=== PATIENT | male | born 1980 | race Caucasian/White ===

== ENCOUNTER 2017-03-05 13:56 | Inpatient (IN) | payer MEDICAID ==
[~2017-03-05] VITALS: Ht 180.3 cm; Wt 74.0 kg
[2017-03-05] MEDS ORDERED: SODIUM CHLORIDE FLUSH 10ML SYR IVF ONE ×2 (15:30→17:00)
[2017-03-05] MEDS ORDERED: SODIUM CHLORIDE 0.9% 1,000ML IVBOLUS ONE ×2 (15:30→16:30)
[2017-03-05] MEDS ORDERED: LIDOCAINE 1%, 10ML INFIL ONE (15:30)
[2017-03-05 15:57] LABS: BLOOD UREA NITROGEN 11 mg/dL (7-18)
[2017-03-05] MEDS ORDERED: PHARMACOKINETIC CONSULTATION MC ONE ×2 (16:30→21:00)
[2017-03-05] MEDS ORDERED: VANCOMYCIN PER PHARMACY MC ONE (16:30)
[2017-03-05] MEDS ORDERED: SODIUM CHLORIDE 0.9% 1,000 ML IV ONE (16:55)
[2017-03-05] MEDS ORDERED: VANCOMYCIN 1,500 MG in SODIUM CHLORIDE 0.9% 250 ML IV ONE (17:00)
[2017-03-05] MEDS: D5%-0.45% NACL 1,000 ML IV SCH (17:16)
[2017-03-05] MEDS ORDERED: VANCOMYCIN PER PHARMACY MC PRN ×2 (17:30)
[2017-03-05] MEDS ORDERED: AMPICILLIN/SULBACTAM 3 GM in SODIUM CHLORIDE 0.9% 100 ML IV SCH (17:30)
[2017-03-05] MEDS ORDERED: DOCUSATE 100 MG CAPSULE PO PRN (17:30)
[2017-03-05] MEDS ORDERED: HYDROmorphone 1 MG/ML, 1ML ONE ×3 (17:30→18:53)
[2017-03-05] MEDS ORDERED: LORazepam 2 MG/ML, 1ML ONE (17:32)
[2017-03-05] MEDS: HYDROmorphone 1 MG/ML, 1ML IV PRN ×6 (17:36→21:17)
[2017-03-05] MEDS: LORazepam 2 MG/ML, 1ML IVPush PRN ×2 (17:36→22:56)
[2017-03-05] MEDS ORDERED: PROPOFOL 10 MG/ML, 20ML ONE (18:28)
[2017-03-05] MEDS ORDERED: ONDANSETRON 2MG/ML, 2ML ONE (18:28)
[2017-03-05] MEDS ORDERED: SUCCINYLCHOLINE 20 MG/ML, 10ML ONE (18:28)
[2017-03-05] MEDS ORDERED: FENTANYL PF 250 MCG/5ML ONE (18:29)
[2017-03-05] MEDS ORDERED: ACETAMINOPHEN 325 MG TABLET PO PRN (19:00)
[2017-03-05] MEDS ORDERED: MEPERIDINE/PF 25MG/0.5ML IVPush PRN (19:00)
[2017-03-05] MEDS ORDERED: ONDANSETRON 2MG/ML, 2ML IVPush PRN (19:00)
[2017-03-05] MEDS ORDERED: ALBUTEROL SULFATE 2.5 MG/3 ML NPPB PRN (19:00)
[2017-03-05] MEDS ORDERED: LABETALOL 5MG/ML, 20ML IV PRN (19:00)
[2017-03-05] MEDS ORDERED: METOPROLOL 1 MG/ML, 5ML IV PRN (19:00)
[2017-03-05] MEDS ORDERED: hydrALAzine 20 MG/ML, 1ML IV PRN (19:00)
[2017-03-05] MEDS ORDERED: EPHEDRINE 50 MG/ML, 1ML IVPush PRN (19:00)
[2017-03-05] MEDS ORDERED: OXYcodone 5 MG/5 ML ORAL.SOL UDC PO PRN (19:00)
[2017-03-05] MEDS ORDERED: MIDAZOLAM 1 MG/ML, 2ML ONE (19:32)
[2017-03-05] MEDS ORDERED: FENTANYL PF 100 MCG/2ML ONE (19:32)
[2017-03-05] MEDS ORDERED: OXYcodone 5 MG/5 ML ORAL.SOL UDC ONE (19:32)
[2017-03-05] MEDS ORDERED: HYDROmorphone 2 MG/ML, 1ML ONE (19:32)
[2017-03-05] MEDS: MIDAZOLAM 1 MG/ML, 2ML IV PRN ×2 (19:39→20:11)
[2017-03-05] MEDS: FENTANYL PF 100 MCG/2ML IV PRN ×2 (19:41→19:49)
[2017-03-05] MEDS ORDERED: PHARMACOKINETIC MONITORING MC PRN (21:00)
[2017-03-05] MEDS: AMPICILLIN/SULBACTAM 3 GM in SODIUM CHLORIDE 0.9% 100 ML IV SCH (21:42)
[2017-03-05 21:46] VITALS: BP 115/60
[2017-03-06] MEDS: D5%-0.45% NACL 1,000 ML IV SCH ×3 (03:10→22:31)
[2017-03-06] MEDS: AMPICILLIN/SULBACTAM 3 GM in SODIUM CHLORIDE 0.9% 100 ML IV SCH ×4 (03:51→20:57)
[2017-03-06 04:00] VITALS: BP 118/66
[2017-03-06 04:15] VITALS: BP 99/52
[2017-03-06] MEDS: VANCOMYCIN 1,500 MG in SODIUM CHLORIDE 0.9% 250 ML IV SCH ×2 (04:40→18:06)
[2017-03-06 06:06] LABS: ASPARTATE AMINO TRANSFERASE 16 U/L (15-37); BLOOD UREA NITROGEN 6 mg/dL (7-18)
[2017-03-06 06:32] VITALS: BP 91/48
[2017-03-06 12:56] VITALS: BP 92/44
[2017-03-06] MEDS: HYDROmorphone 1 MG/ML, 1ML IV PRN ×4 (13:00→23:47)
[2017-03-06] MEDS: LORazepam 2 MG/ML, 1ML IVPush PRN ×3 (13:56→22:30)
[2017-03-07 02:17] VITALS: BP 106/49
[2017-03-07] MEDS: LORazepam 2 MG/ML, 1ML IVPush PRN (02:47)
[2017-03-07] MEDS: AMPICILLIN/SULBACTAM 3 GM in SODIUM CHLORIDE 0.9% 100 ML IV SCH (02:47)
[2017-03-07] MEDS: VANCOMYCIN 1,500 MG in SODIUM CHLORIDE 0.9% 250 ML IV SCH (04:32)
[2017-03-07] MEDS: HYDROmorphone 1 MG/ML, 1ML IV PRN ×2 (04:32→07:40)
[2017-03-07 05:33] LABS: ASPARTATE AMINO TRANSFERASE 15 U/L (15-37); BLOOD UREA NITROGEN 9 mg/dL (7-18)
[2017-03-07 07:08] VITALS: BP 103/64
[2017-03-07] MEDS ORDERED: HYDROmorphone 1 MG/ML, 1ML ONE (09:17)
[2017-03-07] MEDS ORDERED: LORazepam 2 MG/ML, 1ML IVPush PRN (09:30)
[2017-03-07] MEDS ORDERED: HYDROmorphone 1 MG/ML, 1ML IV PRN (11:30)
[2017-03-08] MEDS ORDERED: NICOTINE 21 MG/24 HR PATCH.TD24 TD SCH (09:00)
== END 2017-03-07 10:52 | disposition left against medical advice (07) | DRG 854 ==
LOC: ED 15:14 → EDIP 16:55 → 4NOR 20:50
PROVIDERS: ADMIT Family Medicine; ATTEND Family Medicine
PROC: 0KBB0ZZ Excision of Left Lower Arm and Wrist Muscle, Open Approach (ICD-10-PCS; principal; 2017-03-05 18:30)
DX: A41.9 Sepsis, unspecified organism (principal); L03.114 Cellulitis of left upper limb; L02.414 Cutaneous abscess of left upper limb; E87.1 Hypo-osmolality and hyponatremia; E44.0 Moderate protein-calorie malnutrition; F11.20 Opioid dependence, uncomplicated; F19.20 Other psychoactive substance dependence, uncomplicated; B95.61 Methicillin susceptible Staphylococcus aureus infection as the cause of diseases classified elsewhere; F17.210 Nicotine dependence, cigarettes, uncomplicated; D64.9 Anemia, unspecified; D47.3 Essential (hemorrhagic) thrombocythemia; Z68.21 Body mass index [BMI] 21.0-21.9, adult
CPT/HCPCS: 36415; 80048; 80053; 82040; 83605; 84145; 85025; 85610; 85651; 85730; 86140; 87040; 87070; 87075; 87077; 87186; 87205; 96361; 96365; 96366; J0295; J1170; J2250; J2405; J2704; J3010; J3370; J0330; J2060; J7030; J7050

== ENCOUNTER 2017-03-07 21:17 | Emergency (ER) | payer MEDICAID ==
[~2017-03-07] VITALS: Ht 180.3 cm; Wt 73.4 kg
[2017-03-07] MEDS ORDERED: HYDROmorphone 1 MG/ML, 1ML ONE (22:46)
[2017-03-07] MEDS ORDERED: HYDROmorphone 1 MG/ML, 1ML IM ONE (23:00)
[2017-03-07] MEDS ORDERED: ONDANSETRON ODT 4 MG PO ONE (23:00)
[2017-03-07] MEDS ORDERED: MORPHINE SULFATE 4 MG/ML, 1ML ONE (23:44)
[2017-03-07] MEDS ORDERED: ONDANSETRON 2MG/ML, 2ML ONE (23:44)
[2017-03-08] MEDS ORDERED: ONDANSETRON 2MG/ML, 2ML IVPush ONE
[2017-03-08] MEDS ORDERED: SODIUM CHLORIDE 0.9% 1,000ML IVBOLUS ONE
[2017-03-08] MEDS ORDERED: LORazepam 2 MG/ML, 1ML ONE (00:16)
[2017-03-08] MEDS ORDERED: LORazepam 2 MG/ML, 1ML IVPush ONE (00:30)
[2017-03-08 00:35] LABS: BLOOD UREA NITROGEN 11 mg/dL (7-18)
[2017-03-08] MEDS ORDERED: SODIUM CHLORIDE 0.9% 1,000 ML IV ONE (00:40)
[2017-03-08] MEDS ORDERED: MORPHINE SULFATE 4 MG/ML, 1ML IVPush PRN ×2 (01:00)
[2017-03-08] MEDS ORDERED: ONDANSETRON 2MG/ML, 2ML IVPush PRN (01:00)
[2017-03-08 01:44] VITALS: BP 127/79
== END 2017-03-08 03:56 | disposition left against medical advice (07) ==
LOC: ED 21:44 → UNDOADMIN 03-08 00:40 → EDIP 03-08 00:40 → 3NE 03-08 01:41 → EDIP 03-08 01:41 → ED 03-08 03:56 → UNDODISIN 03-08 03:56
DX: L02.414 Cutaneous abscess of left upper limb (principal); F11.10 Opioid abuse, uncomplicated
CPT/HCPCS: 36415; 80048; 82040; 85025; 96372; 96374; 96375; 99284; J1170; J2060; J7030

== ENCOUNTER 2017-04-01 14:32 | Emergency (ER) | payer MEDICAID ==
[~2017-04-01] VITALS: Ht 180.3 cm; Wt 76.3 kg
[2017-04-01] MEDS ORDERED: CEPH-368 PO (15:58)
[2017-04-01] MEDS ORDERED: LIDOCAINE 1%-EPI 1:100K, 20ML SQ ONE (17:00)
[2017-04-01 17:21] VITALS: BP 104/57
== END 2017-04-01 17:22 | disposition home or self-care (01) ==
LOC: ED 15:30
DX: L02.414 Cutaneous abscess of left upper limb (principal); F11.10 Opioid abuse, uncomplicated
CPT/HCPCS: 99283

== ENCOUNTER 2019-02-14 02:33 | Emergency (ER) | payer MEDICAID ==
[~2019-02-14] VITALS: Ht 180.3 cm; Wt 82.0 kg
[~2019-02-14 02:33] MED LIST: CEPH-368 PO
[2019-02-14 02:36] VITALS: BP 126/76
--- NOTE | 2019-02-14 02:48 | NUR ---
LUNCH RN: PT IN GOWN IN [facility]. ERP AT BS. PT EDUCATED ON ER PROCESS AND POC AND VERBALIZES UNDERSTANDING. CALL LIGHT IS WITHIN REACH AT THIS TIME.
[2019-02-14] MEDS ORDERED: SULFAMETH./TRIMETHOPRIM DS 800MG/160MG TABLET ONE (03:09)
[2019-02-14] MEDS ORDERED: CEPHALEXIN 500 MG CAPSULE ONE (03:09)
[2019-02-14] MEDS ORDERED: IBUPROFEN 200 MG TABLET ONE (03:09)
[2019-02-14] MEDS ORDERED: IBUPROFEN 600 MG TABLET PO ONE (03:30)
[2019-02-14] MEDS ORDERED: SULFAMETH./TRIMETHOPRIM DS 800MG/160MG TABLET PO ONE (03:30)
[2019-02-14] MEDS ORDERED: CEPHALEXIN 500 MG CAPSULE PO ONE (03:30)
== END 2019-02-14 03:56 | disposition home or self-care (01) ==
LOC: ED 03:52
DX: L02.413 Cutaneous abscess of right upper limb (principal)
CPT/HCPCS: 99284